=== PATIENT | male | born 1960 | race Hispanic/Latino ===

== ENCOUNTER 2025-07-19 00:49 | Inpatient (IN) | payer SELFPAY ==
[~2025-07-19] VITALS: Ht 177.8 cm; Wt 79.9 kg
[2025-07-19] VITALS (21 sets, daily range): BP systolic 144–186; BP diastolic 59–91; PULSE 80–102; RESP 16–20; TEMP 97.1–97.9; O2SAT 94–98
[2025-07-19 01:12] LABS: BASOPHIL # 0.1 10^3/uL (0.0-0.1); BASOPHIL % 0.4 % (0.2-1.2); EOSINOPHIL # 0.3 10^3/uL (0.0-0.2); EOSINOPHIL % 1.9 % (0.0-5.0); HEMATOCRIT(ML) 42.2 % (37.0-53.0); IG % 0.40 % (0.00-0.50); LYMPHOCYTES # 3.60 10^3/uL1 (1.0-4.8); LYMPHOCYTES % 27.7 % (24.0-44.0); MEAN CORP HGB 29.8 pg (26-34); MEAN CORP HGB CONCENTRATION 33.9 g/dL (33-36.5); MEAN CORP VOLUME 87.9 fL (78-100); MONOCYTES # 1.0 10^3/uL (0.3-0.8); MONOCYTES % 7.9 % (5.0-12.0); NEUTROPHIL # 8.0 10^3/uL (1.8-7.7); NEUTROPHILS % 61.7 % (41.0-85.0); RED BLOOD CELL 4.80 10^6/uL (4.50-5.90); RED CELL DISTRIBUTION WIDTH 12.5 % (11.5-14.5); WHITE BLOOD CELL 13.0 10^3/uL (4.5-11.0)
[2025-07-19] MEDS ORDERED: NS 1000ML 1,000 ML ONE (01:32)
[2025-07-19] MEDS ORDERED: TORADOL ONE (01:32)
[2025-07-19] MEDS: TORADOL IV STA (01:41)
[2025-07-19] MEDS: NS 1000ML 1,000 ML IV STA ×2 (01:41→08:54)
[2025-07-19 01:44] LABS: ALANINE AMINOTRANSFERASE(ML) 26 U/L (12-78); ALBUMIN(ML) 3.8 g/dL (3.4-5.0); CREATININE SERUM 1.23 mg/dL (0.59-1.40); EST GFR, NON-AA 59.6 (>/=60); TROPONIN I HIGH SENSITIVITY 6 ng/L (0-75)
[2025-07-19] MEDS ORDERED: MECLIZINE HCL ONE (02:02)
[2025-07-19] MEDS: MECLIZINE HCL PO STA (02:05)
[2025-07-19 02:09] LABS: LEUKOCYTE ESTERASE ,URINE NEGATIVE (NEGATIVE); NITRATE,URINE NEGATIVE (NEGATIVE)
[2025-07-19 02:15] LABS: APPEARANCE,URINE CLEAR; UA COLOR YELLOW
[2025-07-19] MEDS ORDERED: COMPAZINE ONE (02:24)
[2025-07-19 02:26] LABS: HUMAN RHINOVIRUS/ENTEROVIRUS NotDetected (NotDetected)
[2025-07-19] MEDS: COMPAZINE IV STA (02:29)
[2025-07-19] MEDS: OFIRMEV 100 ML IV STA (03:22)
[2025-07-19] MEDS: VALIUM IV STA (03:23)
[2025-07-19] MEDS ORDERED: LISI10TA20 PO (03:37)
[2025-07-19] MEDS ORDERED: METF500T17 PO (03:37)
[2025-07-19] MEDS: TRANSDERM-SCOP TD STA (03:48)
[2025-07-19] MEDS: DECADRON IV SCH ×2 (06:29→20:27)
[2025-07-19] MEDS: MECLIZINE HCL PO SCH (06:29)
[2025-07-19] MEDS ORDERED: DEXTROSE 50%-WATER SYRINGE IV PRN (06:30)
[2025-07-19] MEDS: NS 1000ML 1,000 ML IV ONE ×2 (06:30→16:19)
[2025-07-19] MEDS ORDERED: TYLENOL PO PRN (06:30)
[2025-07-19] MEDS ORDERED: BENADRYL IV PRN (06:30)
[2025-07-19] MEDS ORDERED: TORADOL IV PRN (06:30)
[2025-07-19 08:44] LABS: LDL/HDL RATIO 3.5
[2025-07-19] MEDS: ZESTRIL PO SCH (08:54)
[2025-07-19] MEDS: ASPIRIN PO SCH (08:56)
[2025-07-19] MEDS: PLAVIX PO STA (11:03)
[2025-07-19] MEDS: KLOR-CON PO SCH (12:20)
[2025-07-19] MEDS: COMPAZINE IV PRN (12:29)
[2025-07-19] MEDS: LIPITOR PO SCH (20:28)
[2025-07-20] VITALS (10 sets, daily range): BP systolic 114–159; BP diastolic 53–79; PULSE 70–103; RESP 17–20; TEMP 97.2–98.2; O2SAT 95–96
[2025-07-20 05:14] LABS: BASOPHIL # 0.0 10^3/uL (0.0-0.1); BASOPHIL % 0.0 % (0.2-1.2); EOSINOPHIL # 0.0 10^3/uL (0.0-0.2); EOSINOPHIL % 0.0 % (0.0-5.0); HEMATOCRIT(ML) 39.5 % (37.0-53.0); IG % 0.70 % (0.00-0.50); LYMPHOCYTES # 1.07 10^3/uL1 (1.0-4.8); LYMPHOCYTES % 4.5 % (24.0-44.0); MEAN CORP HGB 29.9 pg (26-34); MEAN CORP HGB CONCENTRATION 34.9 g/dL (33-36.5); MEAN CORP VOLUME 85.5 fL (78-100); MONOCYTES # 0.7 10^3/uL (0.3-0.8); MONOCYTES % 3.0 % (5.0-12.0); NEUTROPHIL # 21.9 10^3/uL (1.8-7.7); RED BLOOD CELL 4.62 10^6/uL (4.50-5.90); RED CELL DISTRIBUTION WIDTH 12.6 % (11.5-14.5); WHITE BLOOD CELL 23.9 10^3/uL (4.5-11.0)
[2025-07-20 05:24] LABS: CREATININE SERUM 1.06 mg/dL (0.59-1.40); EST GFR, NON-AA 70.8 (>/=60)
[2025-07-20 06:11] LABS: NEUTROPHILS % 91.8 % (41.0-85.0)
[2025-07-20] MEDS: NS 1000ML 1,000 ML IV SCH (14:02)
[2025-07-21] VITALS (9 sets, daily range): BP systolic 141–161; BP diastolic 68–79; PULSE 61–72; RESP 18–20; TEMP 97–98.6; O2SAT 94–98
[2025-07-21 09:29] LABS: BASOPHIL # 0.0 10^3/uL (0.0-0.1); BASOPHIL % 0.1 % (0.2-1.2); EOSINOPHIL # 0.0 10^3/uL (0.0-0.2); EOSINOPHIL % 0.1 % (0.0-5.0); HEMATOCRIT(ML) 41.2 % (37.0-53.0); IG % 0.50 % (0.00-0.50); LYMPHOCYTES # 2.32 10^3/uL1 (1.0-4.8); LYMPHOCYTES % 13.7 % (24.0-44.0); MEAN CORP HGB 30.0 pg (26-34); MEAN CORP HGB CONCENTRATION 34.5 g/dL (33-36.5); MEAN CORP VOLUME 86.9 fL (78-100); MONOCYTES # 1.0 10^3/uL (0.3-0.8); MONOCYTES % 5.7 % (5.0-12.0); NEUTROPHIL # 13.6 10^3/uL (1.8-7.7); NEUTROPHILS % 79.9 % (41.0-85.0); RED BLOOD CELL 4.74 10^6/uL (4.50-5.90); RED CELL DISTRIBUTION WIDTH 12.3 % (11.5-14.5); WHITE BLOOD CELL 17.0 10^3/uL (4.5-11.0)
[2025-07-21 09:41] LABS: ALANINE AMINOTRANSFERASE(ML) 31.0 U/L (12-78); ALBUMIN(ML) 3.2 g/dL (3.4-5.0); CREATININE SERUM 1.18 mg/dL (0.59-1.40); EST GFR, NON-AA 62.6 (>/=60)
[2025-07-21] MEDS ORDERED: PLAVIX ONE (09:57)
[2025-07-21] MEDS: PLAVIX PO SCH (09:59)
[2025-07-21] MEDS ORDERED: CLOP75TA PO (11:18)
[2025-07-21] MEDS ORDERED: ASPI-929 PO (11:18)
[2025-07-21] MEDS ORDERED: ATOR40TA PO (11:18)
[2025-07-21] MEDS ORDERED: GLIP5TAB19 PO (11:18)
== END 2025-07-21 22:20 | disposition home or self-care (01) | DRG 65 ==
LOC: ER 00:49 → OBS 03:38 → OBSVTOIN 03:38 → MS 03:39
PROVIDERS: ADMIT Internal Medicine; ATTEND Hospitalist
DX: I63.9 Cerebral infarction, unspecified (principal); E87.20 Acidosis, unspecified; E11.65 Type 2 diabetes mellitus with hyperglycemia; I10 Essential (primary) hypertension; E87.6 Hypokalemia; Z79.84 Long term (current) use of oral hypoglycemic drugs; Z79.899 Other long term (current) drug therapy
CPT/HCPCS: 36415; 70450; 70496; 70498; 70551; 74021; 80048; 80053; 80061; 81003; 82948; 83036; 83605; 83690; 84145; 84443; 84484; 85025; 86140; 87631; 92610; 93005; 93306; 96365; 96375; 97161; 97165; 99291; J0131; J0780; J1100; J1815; J1885; J3360; J3490; J7030; J8499; J8597; Q9966; 97110-GO; 97116-GP